=== PATIENT | male | born 1940 | race Caucasian/White ===

== ENCOUNTER 2016-08-02 00:46 | Observation (INO) | payer OTHER ==
[~2016-08-02] VITALS: Ht 180.3 cm; Wt 75.1 kg
[~2016-08-02 00:46] MED LIST: AMITRIPTYLINE H25 MG PO; CITALOPRAM HBR20 MG PO; HYZAAR 100-21 TABLET PO; LEVOTHROID88 MCG; LOPRESSOR50 MG PO; LOSARTAN-HCTZ1 EAC1; MEDROL DOSEPAK4 MG PO; METOPROLOL SUCC25 MG PO; MOTRIN600 MG PO; PROAIR HFA8.5 GM PO; RIZATRIPTAN10 M1 SL; SPIRIVA1 INHALATI PO; SYNTHROID88 MCG PO; TAMSULOSIN HCL0.4 MG PO
[2016-08-02 01:39] LABS: BASOPHIL COUNT 0.1 K/uL (0-0.1); EOSINOPHIL (%) 0.8 % (0-5); EOSINOPHIL COUNT 0.1 K/uL (0-0.3); HEMATOCRIT 40.3 % (38.0-50.0); IMMATURE GRANULOCYTE (%) 0.6 % (0.0-0.7); LYMPHOCYTE COUNT 1.5 K/uL (1.0-2.8); MCH 31.6 PG (29.0-34.0); MCHC 34.2 G/DL (30.0-36.0); MCV 92.2 FL (86-99); MEAN PLAT.VOLUME 9.8 uM^3 (9.0-12.4); MONOCYTE (%) 11.3 % (3-12); MONOCYTE COUNT 1.9 K/uL (0-0.8); NEUTROPHIL COUNT 12.7 K/uL (1.8-6.4); PLATELET COUNT 291 K/uL (156-360); RBC DIS.WIDTH-CV 13.6 % (11.8-14.6); RBC DIS.WIDTH-SD 44.7 % (39-53); RED BLOOD COUNT 4.37 M/uL (4.00-5.50); WHITE BLOOD COUNT 16.3 K/uL (4.1-10.2)
[2016-08-02 01:52] LABS: CHLORIDE 100 mEq/L (99-109); SODIUM 139 mEq/L (136-147)
[2016-08-02 01:53] LABS: GLUCOSE 113 mg/dL (70-99)
[2016-08-02 01:55] LABS: ANION GAP 17 MEQ/L (2-14)
[2016-08-02 01:57] LABS: GFR ESTIMATE (CALCULATED) 42 mL/min/; TROP-I INTERPRETATION NEGATIVE; TROPONIN-I < 0.01 ng/mL (0.0-0.30)
[2016-08-02 01:58] LABS: UREA NITROGEN (BUN) 17 mg/dL (9-23)
[2016-08-02 02:00] LABS: CREATINE KINASE 81 IU/L (1-294)
[2016-08-02 03:26] LABS: ADD MIUA? YES; BILIRUBIN NEGATIVE; BLOOD NEGATIVE; COLOR YELLOW ((YELLOW)); GLUCOSE (STRIP) NEGATIVE; KETONES NEGATIVE; LEUKOCYTES MODERATE; NITRITE NEGATIVE; PH, URINE 6.5 (5-8); PROTEIN (STRIP) 30; SPECIFIC GRAVITY 1.017 (1.000-1.030)
[2016-08-02] MEDS ORDERED: HYZAAR 100-21 TABLET PO (03:32)
[2016-08-02] MEDS ORDERED: METOPROLOL SUCC50 MG PO (03:32)
[2016-08-02] MEDS ORDERED: ELAVIL50 MG PO (03:34)
[2016-08-02] MEDS ORDERED: ASPIR 8181 M1 PO (03:35)
[2016-08-02 03:40] LABS: BACTERIA 3+; CASTS PRESENT /LPF; CRYSTALS NONE SEEN; EPITHELIAL CELLS RARE; HYALINE CASTS 0-5 /LPF; MUCUS NONE SEEN; RED BLOOD CELLS 0-5 /HPF (0-5); UCUL ADDED? YES; WHITE BLOOD CELLS 20-30 /HPF (0-5)
[2016-08-02 05:47] VITALS: BP 116/76
[2016-08-02 08:04] VITALS: BP 139/70
[2016-08-02] MEDS ORDERED: LOPRESSOR50 MG PO (09:36)
[2016-08-02] MEDS ORDERED: ADVAIR 250/501 DISK IH (09:37)
[2016-08-02 11:20] VITALS: BP 108/63
[2016-08-02] MEDS ORDERED: CEFTIN500 MG PO (15:12)
[2016-08-02] MEDS ORDERED: POLYMYXIN B-TMP10 ML BOTH EYES (15:13)
[2016-08-02 15:53] VITALS: BP 114/63
== END 2016-08-02 17:51 | disposition home or self-care (01) ==
LOC: EME → EDBD 00:46 → EME 00:46 → EDOF 04:06 → 5WEST 05:13
PROVIDERS: Emergency Medicine
DX: N39.0 Urinary tract infection, site not specified (principal); H10.89 Other conjunctivitis; F05 Delirium due to known physiological condition; J44.1 Chronic obstructive pulmonary disease with (acute) exacerbation; F17.210 Nicotine dependence, cigarettes, uncomplicated; I10 Essential (primary) hypertension; E03.9 Hypothyroidism, unspecified; R51 Headache; Z82.5 Family history of asthma and other chronic lower respiratory diseases; Z82.49 Family history of ischemic heart disease and other diseases of the circulatory system; Z79.82 Long term (current) use of aspirin
CPT/HCPCS: 70450; 71010; 71020; 80048; 81003; 82550; 83605; 84484; 85025; 87040; 87077; 87086; 87186; 93005; 94640; 94640 76; 94760; 99202; 99281; 99284; G0378; J0696; J1956; J3480; J7030; J7050

== ENCOUNTER 2016-08-16 07:03 | Inpatient (IN) | payer OTHER ==
[~2016-08-16] VITALS: Ht 177.8 cm; Wt 74.5 kg
[~2016-08-16 07:03] MED LIST changes: +ADVAIR 250/501 DISK IH; +ASPIR 8181 M1 PO; +CEFTIN500 MG PO; +ELAVIL50 MG PO; +METOPROLOL SUCC50 MG PO; +POLYMYXIN B-TMP10 ML BOTH EYES
[2016-08-16 08:28] LABS: EOSINOPHIL (%) 0.4 % (0-5); EOSINOPHIL COUNT 0.1 K/uL (0-0.3); HEMATOCRIT 36.8 % (38.0-50.0); IMMATURE GRANULOCYTE (%) 0.2 % (0.0-0.7); IMMATURE GRANULOCYTE COUNT 0.4 K/uL; MCH 31.6 PG (29.0-34.0); MCV 92.9 FL (86-99); MONOCYTE (%) 7.7 % (3-12); MONOCYTE COUNT 1.4 K/uL (0-0.8); NEUTROPHIL (%) 86.1 % (45-76); NEUTROPHIL COUNT 15.2 K/uL (1.8-6.4); RBC DIS.WIDTH-CV 14.2 % (11.8-14.6); RBC DIS.WIDTH-SD 47.1 % (39-53); RED BLOOD COUNT 3.96 M/uL (4.00-5.50); WHITE BLOOD COUNT 17.7 K/uL (4.1-10.2)
[2016-08-16 08:36] LABS: MEAN PLAT.VOLUME 9.4 uM^3 (9.0-12.4); PLATELET COUNT 443 K/uL (156-360)
[2016-08-16 08:38] LABS: INTER. NORMALIZED RATIO 1.2; PROTHROMBIN TIME 12.1 (9.2-11.2)
[2016-08-16 09:01] LABS: ANION GAP 11 MEQ/L (2-14); CHLORIDE 103 MEQ/L (99-109); POTASSIUM 3.5 MEQ/L (3.7-5.4); SAMPLE HEMOLYSIS CHECK 0; SAMPLE ICTERIC CHECK 0; SAMPLE LIPEMIA CHECK 0; SODIUM 139 MEQ/L (136-147); TOTAL BILIRUBIN 0.6 MG/DL (0.0-1.0)
[2016-08-16 09:07] LABS: ALKALINE PHOSPHATASE 50 IU/L (3-129); GFR ESTIMATE (CALCULATED) 57 mL/min/; GLUCOSE 115 mg/dL (70-99); UREA NITROGEN (BUN) 12 mg/dL (9-23)
[2016-08-16 09:20] LABS: TROP-I INTERPRETATION NEGATIVE; TROPONIN-I < 0.01 ng/mL (0.0-0.30)
[2016-08-16] MEDS ORDERED: ELAVIL25 MG PO (09:44)
[2016-08-16] MEDS ORDERED: LOSARTAN POTASS50 MG PO (09:45)
[2016-08-16 15:40] VITALS: BP 107/70
[2016-08-16 19:35] VITALS: BP 90/59
[2016-08-16 21:01] LABS: ADD MIUA? NO; BILIRUBIN SMALL; BLOOD NEGATIVE; COLOR DK YELLOW ((YELLOW)); GLUCOSE (STRIP) NEGATIVE; KETONES NEGATIVE; LEUKOCYTES NEGATIVE; NITRITE NEGATIVE; PROTEIN (STRIP) TRACE; UCUL ADDED? NO; UROBILINOGEN 0.2 MG/DL (0.2-1.0)
[2016-08-16 23:00] VITALS: BP 131/61
[2016-08-17 04:15] VITALS: BP 118/79
[2016-08-17 06:26] LABS: MCH 31.6 PG (29.0-34.0); MCHC 33.3 G/DL (30.0-36.0); MCV 94.8 FL (86-99); PLATELET COUNT 383 K/uL (156-360); RBC DIS.WIDTH-CV 14.8 % (11.8-14.6); RBC DIS.WIDTH-SD 50.5 % (39-53); RED BLOOD COUNT 3.48 M/uL (4.00-5.50)
[2016-08-17 06:27] LABS: WHITE BLOOD COUNT 9.1 K/uL (4.1-10.2)
[2016-08-17 06:49] LABS: ALKALINE PHOSPHATASE 44 IU/L (3-129); ANION GAP 7 MEQ/L (2-14); CHLORIDE 109 MEQ/L (99-109); GFR ESTIMATE (CALCULATED) 57 mL/min/; GLUCOSE 106 mg/dL (70-99); POTASSIUM 4.3 MEQ/L (3.7-5.4); SAMPLE HEMOLYSIS CHECK 0; SAMPLE ICTERIC CHECK 0; SAMPLE LIPEMIA CHECK 0; SODIUM 143 MEQ/L (136-147); TOTAL BILIRUBIN 0.4 MG/DL (0.0-1.0); UREA NITROGEN (BUN) 12 mg/dL (9-23)
[2016-08-17 06:51] LABS: TROP-I INTERPRETATION NEGATIVE; TROPONIN-I 0.04 ng/mL (0.0-0.30)
[2016-08-17 07:46] VITALS: BP 138/84
[2016-08-17 11:58] VITALS: BP 132/83
[2016-08-17 15:02] VITALS: BP 150/100
[2016-08-17 19:40] VITALS: BP 122/80
[2016-08-17 23:50] VITALS: BP 119/81
[2016-08-18 03:09] VITALS: BP 104/84
[2016-08-18 06:20] LABS: HEMATOCRIT 34.9 % (38.0-50.0); MCH 30.5 PG (29.0-34.0); MCHC 32.1 G/DL (30.0-36.0); MCV 95.1 FL (86-99); MEAN PLAT.VOLUME 9.9 uM^3 (9.0-12.4); PLATELET COUNT 423 K/uL (156-360); RBC DIS.WIDTH-CV 14.4 % (11.8-14.6); RED BLOOD COUNT 3.67 M/uL (4.00-5.50); WHITE BLOOD COUNT 9.3 K/uL (4.1-10.2)
[2016-08-18 06:44] LABS: ANION GAP 7 MEQ/L (2-14); CHLORIDE 107 MEQ/L (99-109); GFR ESTIMATE (CALCULATED) > 59 mL/min/; GLUCOSE 79 mg/dL (70-99); POTASSIUM 4.3 MEQ/L (3.7-5.4); SAMPLE HEMOLYSIS CHECK 0; SAMPLE ICTERIC CHECK 0; SAMPLE LIPEMIA CHECK 0; SODIUM 140 MEQ/L (136-147); UREA NITROGEN (BUN) 13 mg/dL (9-23)
[2016-08-18 07:45] VITALS: BP 153/92
[2016-08-18 09:31] VITALS: BP 153/92
[2016-08-18 12:07] VITALS: BP 146/95
[2016-08-18] MEDS ORDERED: ELIQUIS5 MG PO (12:59)
[2016-08-18] MEDS ORDERED: FINASTERIDE5 MG PO (13:01)
[2016-08-18 15:12] VITALS: BP 138/82
== END 2016-08-18 17:01 | disposition home health service (06) | DRG 309 ==
LOC: EME 07:03 → 4EAST 12:02 → EDOF 12:02 → 4EAST 15:33
PROVIDERS: Emergency Medicine; Internal Medicine
DX: I48.0 Paroxysmal atrial fibrillation (principal); N39.0 Urinary tract infection, site not specified; F32.9 Major depressive disorder, single episode, unspecified; N40.1 Benign prostatic hyperplasia with lower urinary tract symptoms; J44.9 Chronic obstructive pulmonary disease, unspecified; E78.5 Hyperlipidemia, unspecified; R73.9 Hyperglycemia, unspecified; R41.0 Disorientation, unspecified; I12.9 Hypertensive chronic kidney disease with stage 1 through stage 4 chronic kidney disease, or unspecified chronic kidney disease; R07.9 Chest pain, unspecified; N18.9 Chronic kidney disease, unspecified; F17.200 Nicotine dependence, unspecified, uncomplicated; E03.9 Hypothyroidism, unspecified; Z87.440 Personal history of urinary (tract) infections; Z74.01 Bed confinement status; Z79.82 Long term (current) use of aspirin; I71.2 Thoracic aortic aneurysm, without rupture
CPT/HCPCS: 70450; 71010; 71275; 76770; 80048; 80053; 81003; 83880; 84443; 84484; 85025; 85027; 85610; 85730; 87086; 93005; 93306; 94640; 94640 76; 94799; 99281; 99285; G0103; J1650

== ENCOUNTER 2016-10-01 04:17 | Emergency (ER) | payer OTHER ==
[~2016-10-01] VITALS: Ht 182.9 cm; Wt 76.0 kg
[~2016-10-01 04:17] MED LIST changes: +ELAVIL25 MG PO; +ELIQUIS5 MG PO; +FINASTERIDE5 MG PO; +LOSARTAN POTASS50 MG PO
[2016-10-01 04:40] LABS: HEMATOCRIT 41.4 % (38.0-50.0); MCH 31.9 PG (29.0-34.0); MCHC 33.3 G/DL (30.0-36.0); MCV 95.8 FL (86-99); MEAN PLAT.VOLUME 9.7 uM^3 (9.0-12.4); PLATELET COUNT 238 K/uL (156-360); RBC DIS.WIDTH-CV 14.3 % (11.8-14.6); RBC DIS.WIDTH-SD 50.4 % (39-53); RED BLOOD COUNT 4.32 M/uL (4.00-5.50); WHITE BLOOD COUNT 8.8 K/uL (4.1-10.2)
[2016-10-01 04:48] LABS: CHLORIDE 108 mEq/L (99-109); POTASSIUM 3.4 mEq/L (3.7-5.4); SODIUM 143 mEq/L (136-147)
[2016-10-01 04:50] LABS: GLUCOSE 112 mg/dL (70-99)
[2016-10-01 04:51] LABS: ANION GAP 13 MEQ/L (2-14)
[2016-10-01 04:54] LABS: GFR ESTIMATE (CALCULATED) 45 mL/min/
[2016-10-01 04:55] LABS: UREA NITROGEN (BUN) 21 mg/dL (9-23)
[2016-10-01 05:00] LABS: TROP-I INTERPRETATION NEGATIVE; TROPONIN-I < 0.01 ng/mL (0.0-0.30)
[2016-10-01 08:38] VITALS: BP 112/80
== END 2016-10-01 08:39 | disposition short-term general hospital (02) ==
LOC: EME → EDBD 04:17 → EME 08:39
PROVIDERS: Emergency Medicine
DX: I71.00 Dissection of unspecified site of aorta (principal); R07.9 Chest pain, unspecified; M54.9 Dorsalgia, unspecified; I10 Essential (primary) hypertension; E03.9 Hypothyroidism, unspecified; Z86.73 Personal history of transient ischemic attack (TIA), and cerebral infarction without residual deficits; F17.200 Nicotine dependence, unspecified, uncomplicated
CPT/HCPCS: 71020; 71275; 72131; 72132; 74177; 80048; 83880; 84484; 85027; 93005; 99281; 99285; J2270; J2405; J7030; J7050

== ENCOUNTER 2016-11-01 14:44 | Inpatient (IN) | payer OTHER ==
[~2016-11-01] VITALS: Ht 175.3 cm; Wt 75.8 kg
[2016-11-01 18:32] VITALS: BP 167/93
[2016-11-01 19:45] VITALS: BP 145/78
[2016-11-01] MEDS ORDERED: ACETAMINOPHEN325 M1 PO (19:56)
[2016-11-01] MEDS ORDERED: CEPHALEXIN500 MG PO (19:57)
[2016-11-01] MEDS ORDERED: ANTIFUNGAL15 G1 TP (19:58)
[2016-11-01] MEDS ORDERED: FLOVENT 11120 INHALA IH (19:59)
[2016-11-01] MEDS ORDERED: ATROVENT 00.5 MG/2.5 IH (20:00)
[2016-11-01] MEDS ORDERED: MULTIVITAMIN1 EAC2 PO (20:02)
[2016-11-01] MEDS ORDERED: ARTIFICIAL TEAR15 M1 BOTH EYES (20:04)
[2016-11-01] MEDS ORDERED: RISPERIDONE2 MG PO (20:04)
[2016-11-01] MEDS ORDERED: ASPIRIN325 MG PO (20:05)
[2016-11-01] MEDS ORDERED: SYNTHROID75 MCG PO (20:05)
[2016-11-02 00:05] VITALS: BP 101/61
[2016-11-02 04:50] VITALS: BP 123/58
[2016-11-02 07:32] VITALS: BP 98/69
[2016-11-02 09:18] LABS: HEMATOCRIT 28.3 % (38.0-50.0); MCH 31.1 PG (29.0-34.0); MCHC 31.1 G/DL (30.0-36.0); MEAN PLAT.VOLUME 9.4 uM^3 (9.0-12.4); PLATELET COUNT 318 K/uL (156-360); RBC DIS.WIDTH-CV 16.6 % (11.8-14.6); RBC DIS.WIDTH-SD 60.3 % (39-53); RED BLOOD COUNT 2.83 M/uL (4.00-5.50); WHITE BLOOD COUNT 12.3 K/uL (4.1-10.2)
[2016-11-02 09:42] LABS: ALKALINE PHOSPHATASE 73 IU/L (3-129); ANION GAP 9 MEQ/L (2-14); CHLORIDE 107 MEQ/L (99-109); GFR ESTIMATE (CALCULATED) 39 mL/min/; GLUCOSE 111 mg/dL (70-99); POTASSIUM 3.7 MEQ/L (3.7-5.4); SAMPLE HEMOLYSIS CHECK 0; SAMPLE ICTERIC CHECK 0; SAMPLE LIPEMIA CHECK 0; SODIUM 138 MEQ/L (136-147); TOTAL BILIRUBIN 0.4 MG/DL (0.0-1.0); UREA NITROGEN (BUN) 18 mg/dL (9-23)
[2016-11-02 15:33] VITALS: BP 114/73
[2016-11-03 05:47] VITALS: BP 154/90
[2016-11-03 05:57] LABS: ANION GAP 8 MEQ/L (2-14); CHLORIDE 107 MEQ/L (99-109); GFR ESTIMATE (CALCULATED) 45 mL/min/; GLUCOSE 93 mg/dL (70-99); POTASSIUM 3.6 MEQ/L (3.7-5.4); SAMPLE HEMOLYSIS CHECK 0; SAMPLE ICTERIC CHECK 0; SAMPLE LIPEMIA CHECK 0; SODIUM 138 MEQ/L (136-147); UREA NITROGEN (BUN) 19 mg/dL (9-23)
[2016-11-03 15:07] VITALS: BP 118/78
[2016-11-03 22:57] VITALS: BP 165/70
[2016-11-04 06:47] VITALS: BP 157/90
[2016-11-04 08:06] VITALS: BP 123/67
[2016-11-04 14:50] LABS: ADD MIUA? YES; BILIRUBIN NEGATIVE; BLOOD MODERATE; COLOR YELLOW ((YELLOW)); GLUCOSE (STRIP) NEGATIVE; KETONES NEGATIVE; LEUKOCYTES SMALL; NITRITE NEGATIVE; PROTEIN (STRIP) 30; SPECIFIC GRAVITY 1.016 (1.000-1.030); UROBILINOGEN 0.2 MG/DL (0.2-1.0)
[2016-11-04 15:02] VITALS: BP 138/85
[2016-11-04 17:47] LABS: AMORPHOUS URATES CRYSTALS 1+; BACTERIA 1+ /HPF; CASTS PRESENT /LPF; CRYSTALS PRESENT; EPITHELIAL CELLS RARE /HPF; HYALINE CASTS 0-5 /LPF; MUCUS 1+ /LPF; WHITE BLOOD CELLS 0-5 /HPF (0-5)
[2016-11-05 05:32] VITALS: BP 117/56
[2016-11-05 14:57] VITALS: BP 101/60
[2016-11-06 05:38] VITALS: BP 104/55
[2016-11-06 15:53] VITALS: BP 101/55
[2016-11-07 05:55] VITALS: BP 100/56
[2016-11-07 09:18] VITALS: BP 118/63
[2016-11-07 15:00] VITALS: BP 118/57
[2016-11-08 04:47] VITALS: BP 109/58
[2016-11-08 15:47] VITALS: BP 106/56
[2016-11-08 22:43] VITALS: BP 98/71
[2016-11-09 06:08] VITALS: BP 120/60
[2016-11-09 14:38] VITALS: BP 126/70
[2016-11-10 04:55] VITALS: BP 100/55
[2016-11-10 14:48] LABS: HEMATOCRIT 27.4 % (38.0-50.0); MCH 30.4 PG (29.0-34.0); MCHC 31.4 G/DL (30.0-36.0); MCV 96.8 FL (86-99); PLATELET COUNT 366 K/uL (156-360); RBC DIS.WIDTH-CV 15.8 % (11.8-14.6); RED BLOOD COUNT 2.83 M/uL (4.00-5.50); WHITE BLOOD COUNT 9.8 K/uL (4.1-10.2)
[2016-11-10 14:57] LABS: CHLORIDE 108 mEq/L (99-109); POTASSIUM 4.6 mEq/L (3.7-5.4); SODIUM 138 mEq/L (136-147)
[2016-11-10 14:59] LABS: GLUCOSE 99 mg/dL (70-99)
[2016-11-10 15:01] LABS: ANION GAP 8 MEQ/L (2-14); TOTAL BILIRUBIN 0.3 mg/dL (0.0-1.0)
[2016-11-10 15:03] LABS: ALKALINE PHOSPHATASE 71 IU/L (3-129); GFR ESTIMATE (CALCULATED) 57 mL/min/
[2016-11-10 15:04] VITALS: BP 133/74
[2016-11-10 15:04] LABS: UREA NITROGEN (BUN) 15 mg/dL (9-23)
[2016-11-11 05:05] VITALS: BP 118/60
[2016-11-11 15:17] VITALS: BP 113/67
[2016-11-12 05:29] VITALS: BP 115/52
[2016-11-12 16:09] VITALS: BP 143/86
[2016-11-13 04:10] VITALS: BP 135/85
[2016-11-14 05:03] VITALS: BP 139/81
[2016-11-14 14:39] VITALS: BP 120/73
[2016-11-15 04:59] LABS: HEMATOCRIT 26.2 % (38.0-50.0); MCH 30.4 PG (29.0-34.0); MCHC 31.3 G/DL (30.0-36.0); MEAN PLAT.VOLUME 9.7 uM^3 (9.0-12.4); PLATELET COUNT 321 K/uL (156-360); RBC DIS.WIDTH-CV 16.8 % (11.8-14.6)
[2016-11-15 05:08] LABS: CHLORIDE 107 mEq/L (99-109); POTASSIUM 4.2 mEq/L (3.7-5.4); SODIUM 137 mEq/L (136-147)
[2016-11-15 05:11] LABS: GLUCOSE 97 mg/dL (70-99)
[2016-11-15 05:12] LABS: ANION GAP 10 MEQ/L (2-14)
[2016-11-15 05:14] LABS: ALKALINE PHOSPHATASE 68 IU/L (3-129); GFR ESTIMATE (CALCULATED) 52 mL/min/
[2016-11-15 05:15] LABS: TOTAL BILIRUBIN 0.7 mg/dL (0.0-1.0); UREA NITROGEN (BUN) 14 mg/dL (9-23)
[2016-11-15 05:18] VITALS: BP 139/72
[2016-11-15 15:00] VITALS: BP 140/72
[2016-11-16 05:19] VITALS: BP 139/75
[2016-11-16] MEDS ORDERED: SYNTHROID75 MCG PO (13:19)
[2016-11-16] MEDS ORDERED: ATORVASTATIN CA40 MG PO (13:19)
[2016-11-16] MEDS ORDERED: TAMSULOSIN HCL0.4 MG PO (13:19)
[2016-11-16] MEDS ORDERED: ARTIFICIAL TEAR15 M1 BOTH EYES (13:19)
[2016-11-16] MEDS ORDERED: LOPRESSOR50 MG PO (13:19)
[2016-11-16] MEDS ORDERED: ADVAIR HFA120 INHAL1 IH (13:19)
[2016-11-16] MEDS ORDERED: FINASTERIDE5 MG PO (13:19)
[2016-11-16] MEDS ORDERED: SENNA PLUS TAB1 EACH PO (13:19)
[2016-11-16] MEDS ORDERED: ASPIRIN325 MG PO (13:19)
== END 2016-11-16 15:40 | disposition home health service (06) | DRG 556 ==
LOC: 3WEST 14:44
PROVIDERS: Internal Medicine; Physical Medicine & Rehabilitation Pain Medicine
PROC: F07M0ZZ Range of Motion and Joint Mobility Treatment of Musculoskeletal System - Whole Body (ICD-10-PCS; principal; 2016-11-01)
DX: R26.2 Difficulty in walking, not elsewhere classified (principal); Z48.89 Encounter for other specified surgical aftercare; N39.0 Urinary tract infection, site not specified; D62 Acute posthemorrhagic anemia; N17.9 Acute kidney failure, unspecified; F05 Delirium due to known physiological condition; L76.32 Postprocedural hematoma of skin and subcutaneous tissue following other procedure; L76.34 Postprocedural seroma of skin and subcutaneous tissue following other procedure; Y83.2 Surgical operation with anastomosis, bypass or graft as the cause of abnormal reaction of the patient, or of later complication, without mention of misadventure at the time of the procedure; Y92.239 Unspecified place in hospital as the place of occurrence of the external cause; I48.0 Paroxysmal atrial fibrillation; J44.9 Chronic obstructive pulmonary disease, unspecified; E87.6 Hypokalemia; I12.9 Hypertensive chronic kidney disease with stage 1 through stage 4 chronic kidney disease, or unspecified chronic kidney disease; N18.9 Chronic kidney disease, unspecified; E78.5 Hyperlipidemia, unspecified; R73.9 Hyperglycemia, unspecified; E03.9 Hypothyroidism, unspecified; R33.9 Retention of urine, unspecified; N40.1 Benign prostatic hyperplasia with lower urinary tract symptoms; G43.909 Migraine, unspecified, not intractable, without status migrainosus; F41.9 Anxiety disorder, unspecified; F17.210 Nicotine dependence, cigarettes, uncomplicated; Z95.828 Presence of other vascular implants and grafts
CPT/HCPCS: 70450; 71010; 71020; 72193; 76882; 80048; 80053; 81003; 84238 90; 84443; 85027; 85651; 87070; 87075; 87086; 87205; 93005; 94640; 94640 76; 94799; 97110 GO; 97530 GP; 99202; G0103; J1644

== ENCOUNTER 2016-11-28 02:47 | Emergency (ER) | payer OTHER ==
[~2016-11-28] VITALS: Ht 182.9 cm; Wt 71.8 kg
[~2016-11-28 02:47] MED LIST changes: +ACETAMINOPHEN325 M1 PO; +ADVAIR HFA120 INHAL1 IH; +ANTIFUNGAL15 G1 TP; +ARTIFICIAL TEAR15 M1 BOTH EYES; +ASPIRIN325 MG PO; +ATORVASTATIN CA40 MG PO; +ATROVENT 00.5 MG/2.5 IH; +CEPHALEXIN500 MG PO; +FLOVENT 11120 INHALA IH; +MULTIVITAMIN1 EAC2 PO; +RISPERIDONE2 MG PO; +SENNA PLUS TAB1 EACH PO; +SYNTHROID75 MCG PO
[2016-11-28 03:43] LABS: HEMATOCRIT 30.1 % (38.0-50.0); MCH 29.9 PG (29.0-34.0); MCHC 30.9 G/DL (30.0-36.0); MCV 96.8 FL (86-99); PLATELET COUNT 387 K/uL (156-360); RBC DIS.WIDTH-CV 15.8 % (11.8-14.6); RBC DIS.WIDTH-SD 56.7 % (39-53); RED BLOOD COUNT 3.11 M/uL (4.00-5.50); WHITE BLOOD COUNT 10.2 K/uL (4.1-10.2)
[2016-11-28 03:54] LABS: INTER. NORMALIZED RATIO 1.3; PROTHROMBIN TIME 12.9 (9.2-11.2); PTT 29.9 (25-32)
[2016-11-28 03:57] LABS: CHLORIDE 108 mEq/L (99-109); POTASSIUM 3.8 mEq/L (3.7-5.4); SODIUM 136 mEq/L (136-147)
[2016-11-28 03:59] LABS: GLUCOSE 95 mg/dL (70-99)
[2016-11-28 04:01] LABS: ANION GAP 7 MEQ/L (2-14); TOTAL BILIRUBIN 0.5 mg/dL (0.0-1.0)
[2016-11-28 04:03] LABS: ALKALINE PHOSPHATASE 84 IU/L (3-129); GFR ESTIMATE (CALCULATED) 57 mL/min/
[2016-11-28 04:04] LABS: UREA NITROGEN (BUN) 13 mg/dL (9-23)
[2016-11-28 04:05] LABS: DIRECT BILIRUBIN 0.3 mg/dL (0.0-0.3)
[2016-11-28 04:06] LABS: LIPASE 207 U/L (1.0-51.0)
[2016-11-28 04:12] LABS: TROP-I INTERPRETATION NEGATIVE; TROPONIN-I 0.01 ng/mL (0.0-0.30)
[2016-11-28 06:31] LABS: ADD MIUA? YES; BILIRUBIN NEGATIVE; BLOOD NEGATIVE; COLOR YELLOW ((YELLOW)); GLUCOSE (STRIP) NEGATIVE; KETONES NEGATIVE; LEUKOCYTES NEGATIVE; NITRITE POSITIVE; PROTEIN (STRIP) 30; SPECIFIC GRAVITY 1.033 (1.000-1.030); UROBILINOGEN 0.2 MG/DL (0.2-1.0)
[2016-11-28 06:33] LABS: BACTERIA 2+ /HPF; EPITHELIAL CELLS NONE SEEN /HPF; MUCUS 2+ /LPF; RED BLOOD CELLS 0-5 /HPF (0-5); UCUL ADDED? NO; WHITE BLOOD CELLS 0-5 /HPF (0-5)
[2016-11-28] MEDS ORDERED: METHENAMINE HIPP1 G1 PO (12:01)
[2016-11-28] MEDS ORDERED: LO-DOSE ASPIRIN81 M2 PO (12:02)
[2016-11-28] MEDS ORDERED: TRAZODONE HCL50 MG PO (12:03)
[2016-11-28] MEDS ORDERED: PROAIR HFA8.5 GM IH (12:04)
[2016-11-28 12:51] VITALS: BP 142/90
== END 2016-11-28 12:53 | disposition short-term general hospital (02) ==
LOC: EME 02:47
PROVIDERS: Emergency Medicine
DX: I71.01 Dissection of thoracic aorta (principal); N30.90 Cystitis, unspecified without hematuria; D64.9 Anemia, unspecified; R74.8 Abnormal levels of other serum enzymes; J44.9 Chronic obstructive pulmonary disease, unspecified; J45.909 Unspecified asthma, uncomplicated; I10 Essential (primary) hypertension; E03.9 Hypothyroidism, unspecified; F32.9 Major depressive disorder, single episode, unspecified; Z86.73 Personal history of transient ischemic attack (TIA), and cerebral infarction without residual deficits; F17.200 Nicotine dependence, unspecified, uncomplicated; Z98.890 Other specified postprocedural states
CPT/HCPCS: 71010; 71275; 74177; 80048; 80076; 81003; 83605; 83690; 84484; 85027; 85610; 85730; 93005; 94640; 99281; 99285; J7030

== ENCOUNTER 2016-12-21 18:46 | Inpatient (IN) | payer OTHER ==
[~2016-12-21] VITALS: Ht 177.8 cm; Wt 69.5 kg
[~2016-12-21 18:46] MED LIST changes: +LO-DOSE ASPIRIN81 M2 PO; +METHENAMINE HIPP1 G1 PO; +MULTIVITAMIN1 EAC2 GT; -MULTIVITAMIN1 EAC2 PO; +PROAIR HFA8.5 GM IH; +TRAZODONE HCL50 MG PO
[2016-12-21 19:43] LABS: MCH 30.1 PG (29.0-34.0); MCV 100.4 FL (86-99); MEAN PLAT.VOLUME 10.3 uM^3 (9.0-12.4); PLATELET COUNT 347 K/uL (156-360); RBC DIS.WIDTH-CV 17.9 % (11.8-14.6); RED BLOOD COUNT 2.79 M/uL (4.00-5.50)
[2016-12-21 19:56] LABS: CHLORIDE 107 mEq/L (99-109); POTASSIUM 3.9 mEq/L (3.7-5.4); SODIUM 143 mEq/L (136-147)
[2016-12-21 19:58] LABS: GLUCOSE 109 mg/dL (70-99)
[2016-12-21 19:59] LABS: ANION GAP 7 MEQ/L (2-14)
[2016-12-21 20:02] LABS: GFR ESTIMATE (CALCULATED) > 59 mL/min/
[2016-12-21 20:03] LABS: UREA NITROGEN (BUN) 34 mg/dL (9-23)
[2016-12-21 20:11] LABS: TROP-I INTERPRETATION NEGATIVE; TROPONIN-I < 0.01 ng/mL (0.0-0.30)
[2016-12-21 22:40] LABS: BASE EXCESS 5.8 mEq/L (-3 to +3); BICARBONATE 30.6 mEq/L (22-26); CARBOXY HGB 2.2 % (0-5); COMMENTS - BLOOD GASES A+C+; DEVICE NC; METHEMOGLOBIN 0.5 % (0-1.5); PCO2 45 mm Hg (35-45); PO2 60 mm Hg (80-100); SITE RR; pH 7.44 (7.35-7.45)
[2016-12-21 22:48] LABS: MAGNESIUM 2.4 mg/dL (1.3-2.7)
[2016-12-21 22:51] LABS: TOTAL BILIRUBIN 0.4 mg/dL (0.0-1.0)
[2016-12-21 22:52] LABS: ALKALINE PHOSPHATASE 112 IU/L (3-129)
[2016-12-21 22:55] LABS: DIRECT BILIRUBIN 0.2 mg/dL (0.0-0.3)
[2016-12-21 23:51] VITALS: BP 136/90
[2016-12-22] VITALS (12 sets, daily range): BP systolic 94–129; BP diastolic 56–76
[2016-12-22] MEDS ORDERED: JEVITY1000 M1 GT (00:31)
[2016-12-22] MEDS ORDERED: DOCU LIQUI50 MG/5 ML GT (00:32)
[2016-12-22] MEDS ORDERED: FLOVENT 22120 INHALA IH (00:33)
[2016-12-22] MEDS ORDERED: METOPROLOL TART75 MG GT (00:35)
[2016-12-22] MEDS ORDERED: MIRALAX255 GM GT (00:36)
[2016-12-22] MEDS ORDERED: ASPIRIN325 MG GT (00:38)
[2016-12-22] MEDS ORDERED: POTASSIUM20 MEQ/11 GT (00:38)
[2016-12-22] MEDS ORDERED: LEVO-T75 MCG GT (00:39)
[2016-12-22] MEDS ORDERED: FUROSEMIDE20 MG GT (00:40)
[2016-12-22] MEDS ORDERED: RISPERDAL1 MG/ML GT (00:44)
[2016-12-22] MEDS ORDERED: SENNA176 MG/5 M GT (00:45)
[2016-12-22] MEDS ORDERED: TERAZOSIN HCL1 MG GT (00:46)
[2016-12-22] MEDS ORDERED: MILK OF MAGN GT (00:48)
[2016-12-22] MEDS ORDERED: GENTLE LAXATIVE10 MG PR (00:48)
[2016-12-22] MEDS ORDERED: FLEET ENEMA EX230 ML PR (00:49)
[2016-12-22] MEDS ORDERED: CHILDREN'S160 MG/22 GT (00:50)
[2016-12-22 05:31] LABS: EOSINOPHIL (%) 6.6 % (0-5); EOSINOPHIL COUNT 0.6 K/uL (0-0.3); HEMATOCRIT 22.8 % (38.0-50.0); IMMATURE GRANULOCYTE (%) 0.5 % (0.0-0.7); INSTRUMENT ABS NEUTROPHIL CT 6.3 K/uL; MCH 30.7 PG (29.0-34.0); MCHC 30.7 G/DL (30.0-36.0); MEAN PLAT.VOLUME 10.6 uM^3 (9.0-12.4); MONOCYTE (%) 6.1 % (3-12); MONOCYTE COUNT 0.5 K/uL (0-0.8); NEUTROPHIL (%) 74.6 % (45-76); NEUTROPHIL COUNT 6.3 K/uL (1.8-6.4); PLATELET COUNT 288 K/uL (156-360); RBC DIS.WIDTH-CV 17.5 % (11.8-14.6); RED BLOOD COUNT 2.28 M/uL (4.00-5.50); WHITE BLOOD COUNT 8.5 K/uL (4.1-10.2)
[2016-12-22 05:46] LABS: ALKALINE PHOSPHATASE 79 IU/L (3-129); ANION GAP 8 MEQ/L (2-14); CHLORIDE 107 MEQ/L (99-109); GFR ESTIMATE (CALCULATED) > 59 mL/min/; GLUCOSE 85 mg/dL (70-99); POTASSIUM 3.8 MEQ/L (3.7-5.4); SAMPLE HEMOLYSIS CHECK 0; SAMPLE ICTERIC CHECK 0; SAMPLE LIPEMIA CHECK 0; SODIUM 142 MEQ/L (136-147); TOTAL BILIRUBIN 0.4 MG/DL (0.0-1.0); UREA NITROGEN (BUN) 30 mg/dL (9-23)
[2016-12-22 08:19] LABS: POINT-OF-CARE METER ID UU14174216
[2016-12-22 08:42] LABS: BASE EXCESS 6.2 mEq/L (-3 to +3); BICARBONATE 30.6 mEq/L (22-26); CARBOXY HGB 2.2 % (0-5); METHEMOGLOBIN 1.1 % (0-1.5); PCO2 43 mm Hg (35-45); PO2 53 mm Hg (80-100); pH 7.46 (7.35-7.45)
[2016-12-22 08:43] LABS: COMMENTS - BLOOD GASES A+C+; DEVICE NC; O2 FLOW 3 L/MIN; SITE LR; TOTAL RESP RATE 16 resp/min
[2016-12-22 15:15] LABS: ADD MIUA? NO; BILIRUBIN NEGATIVE; BLOOD NEGATIVE; COLOR YELLOW ((YELLOW)); GLUCOSE (STRIP) NEGATIVE; KETONES NEGATIVE; LEUKOCYTES NEGATIVE; NITRITE NEGATIVE; PROTEIN (STRIP) NEGATIVE; SPECIFIC GRAVITY 1.013 (1.000-1.030); UROBILINOGEN 0.2 MG/DL (0.2-1.0)
[2016-12-23 03:30] VITALS: BP 104/58
[2016-12-23 06:15] LABS: ANION GAP 8 MEQ/L (2-14); CHLORIDE 104 MEQ/L (99-109); GFR ESTIMATE (CALCULATED) > 59 mL/min/; GLUCOSE 72 mg/dL (70-99); HEMATOCRIT 29.7 % (38.0-50.0); MCH 30.9 PG (29.0-34.0); MCHC 32.3 G/DL (30.0-36.0); PLATELET COUNT 286 K/uL (156-360); POTASSIUM 4.1 MEQ/L (3.7-5.4); RBC DIS.WIDTH-CV 18.6 % (11.8-14.6); RBC DIS.WIDTH-SD 64.2 % (39-53); SAMPLE HEMOLYSIS CHECK 0; SAMPLE ICTERIC CHECK 0; SAMPLE LIPEMIA CHECK 0; SODIUM 138 MEQ/L (136-147); UREA NITROGEN (BUN) 31 mg/dL (9-23); WHITE BLOOD COUNT 7.8 K/uL (4.1-10.2)
[2016-12-23 06:17] LABS: MCV 95.5 FL (86-99); RED BLOOD COUNT 3.11 M/uL (4.00-5.50)
[2016-12-23 07:37] VITALS: BP 106/74
[2016-12-23 08:37] LABS: INTERNAL CONTROL VALID? YES
[2016-12-23 11:37] VITALS: BP 115/67
[2016-12-23 14:05] LABS: POC NON-PRINT COM 1 ND
[2016-12-23 19:15] VITALS: BP 121/72
[2016-12-23 23:30] VITALS: BP 91/51
[2016-12-24 03:45] VITALS: BP 109/57
[2016-12-24 04:44] LABS: HEMATOCRIT 29.5 % (38.0-50.0); MCH 29.8 PG (29.0-34.0); MCHC 31.5 G/DL (30.0-36.0); MCV 94.6 FL (86-99); MEAN PLAT.VOLUME 10.3 uM^3 (9.0-12.4); PLATELET COUNT 276 K/uL (156-360); RBC DIS.WIDTH-SD 61.1 % (39-53); RED BLOOD COUNT 3.12 M/uL (4.00-5.50); WHITE BLOOD COUNT 5.8 K/uL (4.1-10.2)
[2016-12-24 04:55] LABS: CHLORIDE 106 mEq/L (99-109); POTASSIUM 3.7 mEq/L (3.7-5.4); SODIUM 142 mEq/L (136-147)
[2016-12-24 04:58] LABS: ANION GAP 7 MEQ/L (2-14)
[2016-12-24 05:01] LABS: GFR ESTIMATE (CALCULATED) > 59 mL/min/; UREA NITROGEN (BUN) 27 mg/dL (9-23)
[2016-12-24 05:04] LABS: GLUCOSE 135 mg/dL (70-99)
[2016-12-24 07:00] VITALS: BP 110/66
[2016-12-24 11:21] VITALS: BP 118/76
[2016-12-24 15:51] VITALS: BP 151/74
[2016-12-24 19:00] VITALS: BP 126/61
[2016-12-24 23:30] VITALS: BP 122/66
[2016-12-25 03:30] VITALS: BP 118/66
[2016-12-25 06:03] LABS: HEMATOCRIT 31.9 % (38.0-50.0); MCH 29.9 PG (29.0-34.0); MCV 96.4 FL (86-99); MEAN PLAT.VOLUME 9.9 uM^3 (9.0-12.4); PLATELET COUNT 265 K/uL (156-360); RBC DIS.WIDTH-CV 17.5 % (11.8-14.6); RBC DIS.WIDTH-SD 60.4 % (39-53); RED BLOOD COUNT 3.31 M/uL (4.00-5.50); WHITE BLOOD COUNT 6.7 K/uL (4.1-10.2)
[2016-12-25 06:26] LABS: ANION GAP 7 MEQ/L (2-14); CHLORIDE 105 MEQ/L (99-109); GFR ESTIMATE (CALCULATED) > 59 mL/min/; GLUCOSE 114 mg/dL (70-99); POTASSIUM 3.7 MEQ/L (3.7-5.4); SAMPLE HEMOLYSIS CHECK 0; SAMPLE ICTERIC CHECK 0; SAMPLE LIPEMIA CHECK 0; SODIUM 142 MEQ/L (136-147); UREA NITROGEN (BUN) 22 mg/dL (9-23)
[2016-12-25 07:22] VITALS: BP 139/80
[2016-12-25 12:45] VITALS: BP 116/63
[2016-12-25 16:08] VITALS: BP 107/61
[2016-12-25 20:00] VITALS: BP 130/61
[2016-12-26 00:23] VITALS: BP 139/79
[2016-12-26 04:42] VITALS: BP 139/65
[2016-12-26 07:45] VITALS: BP 134/79
[2016-12-26 11:10] VITALS: BP 132/74
[2016-12-26 16:36] VITALS: BP 147/82
[2016-12-26 23:15] VITALS: BP 132/68
[2016-12-27 04:42] VITALS: BP 142/73
[2016-12-27 07:05] LABS: HEMATOCRIT 28.7 % (38.0-50.0); MCH 30.2 PG (29.0-34.0); MCHC 31.4 G/DL (30.0-36.0); MCV 96.3 FL (86-99); MEAN PLAT.VOLUME 10.3 uM^3 (9.0-12.4); PLATELET COUNT 246 K/uL (156-360); RBC DIS.WIDTH-CV 16.9 % (11.8-14.6); RBC DIS.WIDTH-SD 58.4 % (39-53); RED BLOOD COUNT 2.98 M/uL (4.00-5.50); WHITE BLOOD COUNT 7.6 K/uL (4.1-10.2)
[2016-12-27 08:00] VITALS: BP 149/65
[2016-12-27 12:00] VITALS: BP 140/80
[2016-12-27 16:38] VITALS: BP 107/56
[2016-12-27 19:30] VITALS: BP 120/67
[2016-12-27 23:00] VITALS: BP 153/70
[2016-12-28 03:30] VITALS: BP 128/79
[2016-12-28 06:01] LABS: EOSINOPHIL (%) 0.1 % (0-5); HEMATOCRIT 30.6 % (38.0-50.0); IMMATURE GRANULOCYTE (%) 0.6 % (0.0-0.7); IMMATURE GRANULOCYTE COUNT 0.1 K/uL; INSTRUMENT ABS NEUTROPHIL CT 6.7 K/uL; LYMPHOCYTE COUNT 0.9 K/uL (1.0-2.8); MCH 30.1 PG (29.0-34.0); MCV 96.8 FL (86-99); MEAN PLAT.VOLUME 10.3 uM^3 (9.0-12.4); MONOCYTE (%) 11.8 % (3-12); NEUTROPHIL (%) 77.1 % (45-76); NEUTROPHIL COUNT 6.7 K/uL (1.8-6.4); PLATELET COUNT 271 K/uL (156-360); RBC DIS.WIDTH-SD 58.9 % (39-53); RED BLOOD COUNT 3.16 M/uL (4.00-5.50); WHITE BLOOD COUNT 8.7 K/uL (4.1-10.2)
[2016-12-28 06:25] LABS: ALKALINE PHOSPHATASE 81 IU/L (3-129); ANION GAP 8 MEQ/L (2-14); CHLORIDE 104 MEQ/L (99-109); GFR ESTIMATE (CALCULATED) > 59 mL/min/; GLUCOSE 116 mg/dL (70-99); POTASSIUM 3.9 MEQ/L (3.7-5.4); SAMPLE HEMOLYSIS CHECK 0; SAMPLE ICTERIC CHECK 0; SAMPLE LIPEMIA CHECK 0; SODIUM 143 MEQ/L (136-147); UREA NITROGEN (BUN) 21 mg/dL (9-23)
[2016-12-28 06:32] LABS: TOTAL BILIRUBIN 0.3 MG/DL (0.0-1.0)
[2016-12-28 09:24] VITALS: BP 127/63
[2016-12-28 11:09] VITALS: BP 138/74
[2016-12-28 19:57] VITALS: BP 119/65
[2016-12-29 00:36] VITALS: BP 121/75
[2016-12-29 03:53] VITALS: BP 139/79
[2016-12-29 07:52] VITALS: BP 119/59
[2016-12-29 10:16] LABS: EOSINOPHIL (%) 0.6 % (0-5); EOSINOPHIL COUNT 0.1 K/uL (0-0.3); HEMATOCRIT 31.6 % (38.0-50.0); IMMATURE GRANULOCYTE (%) 0.5 % (0.0-0.7); INSTRUMENT ABS NEUTROPHIL CT 6.8 K/uL; LYMPHOCYTE COUNT 0.8 K/uL (1.0-2.8); MCH 29.5 PG (29.0-34.0); MCHC 30.7 G/DL (30.0-36.0); MEAN PLAT.VOLUME 9.7 uM^3 (9.0-12.4); MONOCYTE COUNT 0.6 K/uL (0-0.8); NEUTROPHIL (%) 81.8 % (45-76); NEUTROPHIL COUNT 6.8 K/uL (1.8-6.4); PLATELET COUNT 275 K/uL (156-360); RBC DIS.WIDTH-CV 16.6 % (11.8-14.6); RBC DIS.WIDTH-SD 57.8 % (39-53); RED BLOOD COUNT 3.29 M/uL (4.00-5.50); WHITE BLOOD COUNT 8.3 K/uL (4.1-10.2)
[2016-12-29 10:27] LABS: CHLORIDE 104 mEq/L (99-109); POTASSIUM 3.9 mEq/L (3.7-5.4); SODIUM 140 mEq/L (136-147)
[2016-12-29 10:30] LABS: GLUCOSE 112 mg/dL (70-99)
[2016-12-29 10:31] LABS: ANION GAP 8 MEQ/L (2-14)
[2016-12-29 10:32] LABS: TOTAL BILIRUBIN 0.3 mg/dL (0.0-1.0)
[2016-12-29 10:33] LABS: ALKALINE PHOSPHATASE 83 IU/L (3-129); GFR ESTIMATE (CALCULATED) > 59 mL/min/
[2016-12-29 10:34] LABS: UREA NITROGEN (BUN) 23 mg/dL (9-23)
[2016-12-29] MEDS ORDERED: AMOX TR-K600 MG/5 M GT (11:47)
[2016-12-29] MEDS ORDERED: SPIRIVA RESPIMAT4 GM IH (11:47)
[2016-12-29] MEDS ORDERED: PREDNISONE1 MG/ML GT (11:49)
[2016-12-29] MEDS ORDERED: FINASTERIDE5 MG GT (11:50)
[2016-12-29 12:38] VITALS: BP 119/70
== END 2016-12-29 15:53 | DRG 871 ==
LOC: EME → EDBD 18:46 → EME 18:46 → 4EAST 21:31 → EDOF 21:31 → 3EAST 21:31 → 4EAST 23:26
PROVIDERS: Emergency Medicine; Hospitalist; Internal Medicine; Physician Assistant Medical
PROC: 0DJ08ZZ Inspection of Upper Intestinal Tract, Via Natural or Artificial Opening Endoscopic (ICD-10-PCS; principal; 2016-12-23)
DX: A41.9 Sepsis, unspecified organism (principal); J69.0 Pneumonitis due to inhalation of food and vomit; J96.21 Acute and chronic respiratory failure with hypoxia; R13.10 Dysphagia, unspecified; I48.0 Paroxysmal atrial fibrillation; F41.9 Anxiety disorder, unspecified; R33.9 Retention of urine, unspecified; J90 Pleural effusion, not elsewhere classified; G43.909 Migraine, unspecified, not intractable, without status migrainosus; N31.2 Flaccid neuropathic bladder, not elsewhere classified; D62 Acute posthemorrhagic anemia; E03.9 Hypothyroidism, unspecified; E78.5 Hyperlipidemia, unspecified; Z87.891 Personal history of nicotine dependence; N40.1 Benign prostatic hyperplasia with lower urinary tract symptoms; R47.02 Dysphasia; I12.9 Hypertensive chronic kidney disease with stage 1 through stage 4 chronic kidney disease, or unspecified chronic kidney disease; N18.3 Chronic kidney disease, stage 3 (moderate); T81.89XA Other complications of procedures, not elsewhere classified, initial encounter; Y83.8 Other surgical procedures as the cause of abnormal reaction of the patient, or of later complication, without mention of misadventure at the time of the procedure; Z93.1 Gastrostomy status; J44.9 Chronic obstructive pulmonary disease, unspecified; F05 Delirium due to known physiological condition
CPT/HCPCS: 36600; 70450; 71010; 71020; 74230; 80048; 80048 91; 80053; 80076; 81003; 82272; 82607; 82746; 82803; 82948; 83605; 83735; 84484; 85025; 85027; 86900; 86901; 86920; 87040; 87070; 87086; 87205; 87449; 92526 GN; 92610 GN; 92611 GN; 93005; 94010; 94640; 94640 76; 94667; 94668; 94760; 94799; 97530 GP; 99202; 99281; 99285; J0456; J1644; J1940; J2543; J3370; J7050; J7512; P9016

== ENCOUNTER 2017-01-02 18:23 | Inpatient (IN) | payer OTHER ==
[~2017-01-02] VITALS: Ht 177.8 cm; Wt 95.0 kg
[~2017-01-02 18:23] MED LIST changes: +AMOX TR-K600 MG/5 M GT; +ASPIRIN325 MG GT; +CHILDREN'S160 MG/22 GT; +DOCU LIQUI50 MG/5 ML GT; +FINASTERIDE5 MG GT; +FLEET ENEMA EX230 ML PR; +FLOVENT 22120 INHALA IH; +FUROSEMIDE20 MG GT; +GENTLE LAXATIVE10 MG PR; +JEVITY1000 M1 GT; +LEVO-T75 MCG GT; +METOPROLOL TART75 MG GT; +MILK OF MAGN GT; +MIRALAX255 GM GT; +POTASSIUM20 MEQ/11 GT; +PREDNISONE1 MG/ML GT; +RISPERDAL1 MG/ML GT; +SENNA176 MG/5 M GT; +SPIRIVA RESPIMAT4 GM IH; +TERAZOSIN HCL1 MG GT
[2017-01-02 19:05] LABS: HEMATOCRIT 34.4 % (38.0-50.0); MCH 29.6 PG (29.0-34.0); MCHC 31.4 G/DL (30.0-36.0); MCV 94.2 FL (86-99); MEAN PLAT.VOLUME 9.5 uM^3 (9.0-12.4); RBC DIS.WIDTH-CV 16.1 % (11.8-14.6); RBC DIS.WIDTH-SD 55.4 % (39-53); RED BLOOD COUNT 3.65 M/uL (4.00-5.50)
[2017-01-02 19:06] LABS: PLATELET COUNT 411 K/uL (156-360)
[2017-01-02 19:14] LABS: CHLORIDE 102 mEq/L (99-109); POTASSIUM 4.2 mEq/L (3.7-5.4); SODIUM 137 mEq/L (136-147)
[2017-01-02 19:15] LABS: GLUCOSE 122 mg/dL (70-99)
[2017-01-02 19:17] LABS: ANION GAP 10 MEQ/L (2-14)
[2017-01-02 19:19] LABS: GFR ESTIMATE (CALCULATED) > 59 mL/min/
[2017-01-02 19:20] LABS: UREA NITROGEN (BUN) 23 mg/dL (9-23)
[2017-01-02 19:24] LABS: TROP-I INTERPRETATION NEGATIVE; TROPONIN-I 0.05 ng/mL (0.0-0.30)
[2017-01-02 19:58] LABS: INTER. NORMALIZED RATIO 1.1; PROTHROMBIN TIME 11.4 (9.2-11.2); PTT 25.4 (25-32)
[2017-01-02 20:01] LABS: BASE EXCESS 4.7 mEq/L (-3 to +3); BICARBONATE 27.9 mEq/L (22-26); CARBOXY HGB 2.1 % (0-5); COMMENTS - BLOOD GASES A+C+; DEVICE NC; MECHANICAL RATE 18 resp/min; METHEMOGLOBIN 0.9 % (0-1.5); O2 FLOW 4 L/MIN; PCO2 35 mm Hg (35-45); PO2 61 mm Hg (80-100); SITE RR; pH 7.51 (7.35-7.45)
[2017-01-02] MEDS ORDERED: SPIRIVA RESPIMAT4 GM IH (21:44)
[2017-01-02] MEDS ORDERED: FINASTERIDE5 MG GT (21:45)
[2017-01-02] MEDS ORDERED: MAXALT MLT10 MG PO (21:47)
[2017-01-02] MEDS ORDERED: DUONEB 2.5-0.5 M3 ML AEROSOL (21:47)
[2017-01-02] MEDS ORDERED: TAMSULOSIN HCL0.4 MG GT (21:48)
[2017-01-02] MEDS ORDERED: ADVAIR 250/501 DISK IH (21:48)
[2017-01-02] MEDS ORDERED: TRAZODONE HCL50 MG GT (21:48)
[2017-01-03] VITALS (7 sets, daily range): BP systolic 112–158; BP diastolic 58–81
[2017-01-04 04:07] VITALS: BP 133/64
[2017-01-04 07:03] LABS: EOSINOPHIL (%) 0 % (0-5); HEMATOCRIT 32.5 % (38.0-50.0); IMMATURE GRANULOCYTE (%) 0.8 % (0.0-0.7); IMMATURE GRANULOCYTE COUNT 0.1 K/uL; INSTRUMENT ABS NEUTROPHIL CT 11.5 K/uL; LYMPHOCYTE COUNT 0.4 K/uL (1.0-2.8); MCH 29.1 PG (29.0-34.0); MCHC 30.8 G/DL (30.0-36.0); MCV 94.5 FL (86-99); MEAN PLAT.VOLUME 9.6 uM^3 (9.0-12.4); MONOCYTE (%) 3.9 % (3-12); MONOCYTE COUNT 0.5 K/uL (0-0.8); NEUTROPHIL (%) 91.8 % (45-76); NEUTROPHIL COUNT 11.5 K/uL (1.8-6.4); PLATELET COUNT 443 K/uL (156-360); RBC DIS.WIDTH-CV 15.8 % (11.8-14.6); RBC DIS.WIDTH-SD 54.5 % (39-53); RED BLOOD COUNT 3.44 M/uL (4.00-5.50); WHITE BLOOD COUNT 12.5 K/uL (4.1-10.2)
[2017-01-04 07:29] LABS: ANION GAP 7 MEQ/L (2-14); CHLORIDE 98 MEQ/L (99-109); GFR ESTIMATE (CALCULATED) > 59 mL/min/; GLUCOSE 130 mg/dL (70-99); POTASSIUM 4.3 MEQ/L (3.7-5.4); SAMPLE HEMOLYSIS CHECK 0; SAMPLE ICTERIC CHECK 0; SAMPLE LIPEMIA CHECK 0; SODIUM 133 MEQ/L (136-147); UREA NITROGEN (BUN) 28 mg/dL (9-23)
[2017-01-04 07:47] VITALS: BP 166/82
[2017-01-04 11:49] VITALS: BP 142/81
[2017-01-04 17:45] LABS: C DIFF TOXIN NEGATIVE (NEGATIVE)
[2017-01-04 17:46] LABS: PROBE CHECK PASS; SPECIMEN PROCESSING CONTROL PASS
[2017-01-04 19:49] VITALS: BP 124/58
[2017-01-04 23:49] VITALS: BP 130/60
[2017-01-05 08:51] VITALS: BP 148/84
[2017-01-05 12:07] VITALS: BP 135/74
[2017-01-05 15:56] VITALS: BP 134/78
[2017-01-05 19:59] VITALS: BP 126/68
[2017-01-05 23:08] VITALS: BP 119/61
[2017-01-06 05:26] VITALS: BP 167/96
[2017-01-06 06:48] LABS: EOSINOPHIL (%) 0 % (0-5); HEMATOCRIT 31.6 % (38.0-50.0); IMMATURE GRANULOCYTE (%) 0.8 % (0.0-0.7); IMMATURE GRANULOCYTE COUNT 0.1 K/uL; INSTRUMENT ABS NEUTROPHIL CT 9.9 K/uL; LYMPHOCYTE COUNT 0.9 K/uL (1.0-2.8); MCH 30.3 PG (29.0-34.0); MCHC 31.6 G/DL (30.0-36.0); MCV 95.8 FL (86-99); MEAN PLAT.VOLUME 9.3 uM^3 (9.0-12.4); MONOCYTE (%) 8.6 % (3-12); NEUTROPHIL (%) 83.3 % (45-76); NEUTROPHIL COUNT 9.9 K/uL (1.8-6.4); PLATELET COUNT 434 K/uL (156-360); RBC DIS.WIDTH-CV 15.9 % (11.8-14.6); RBC DIS.WIDTH-SD 55.8 % (39-53); WHITE BLOOD COUNT 11.9 K/uL (4.1-10.2)
[2017-01-06 07:13] LABS: ALKALINE PHOSPHATASE 90 IU/L (3-129); ANION GAP 5 MEQ/L (2-14); CHLORIDE 104 MEQ/L (99-109); GFR ESTIMATE (CALCULATED) > 59 mL/min/; GLUCOSE 101 mg/dL (70-99); POTASSIUM 3.7 MEQ/L (3.7-5.4); SAMPLE HEMOLYSIS CHECK 0; SAMPLE ICTERIC CHECK 0; SAMPLE LIPEMIA CHECK 0; TOTAL BILIRUBIN 0.3 MG/DL (0.0-1.0); UREA NITROGEN (BUN) 25 mg/dL (9-23)
[2017-01-06 07:15] LABS: SODIUM 140 MEQ/L (136-147)
[2017-01-06 08:32] VITALS: BP 157/83
[2017-01-06 11:52] VITALS: BP 154/78
[2017-01-06 16:16] VITALS: BP 149/85
[2017-01-06 19:52] VITALS: BP 129/73
[2017-01-06 23:57] VITALS: BP 154/84
[2017-01-07 04:00] VITALS: BP 138/86
[2017-01-07 09:14] VITALS: BP 139/83
[2017-01-07 12:12] VITALS: BP 152/86
[2017-01-07 12:22] LABS: HEMATOCRIT 31.4 % (38.0-50.0); MCH 30.2 PG (29.0-34.0); MCHC 31.5 G/DL (30.0-36.0); MCV 95.7 FL (86-99); MEAN PLAT.VOLUME 9.4 uM^3 (9.0-12.4); PLATELET COUNT 417 K/uL (156-360); RBC DIS.WIDTH-CV 15.9 % (11.8-14.6); RBC DIS.WIDTH-SD 55.8 % (39-53); RED BLOOD COUNT 3.28 M/uL (4.00-5.50); WHITE BLOOD COUNT 12.2 K/uL (4.1-10.2)
[2017-01-07 13:01] LABS: ANION GAP 7 MEQ/L (2-14); CHLORIDE 105 MEQ/L (99-109); GFR ESTIMATE (CALCULATED) > 59 mL/min/; GLUCOSE 96 mg/dL (70-99); SAMPLE HEMOLYSIS CHECK 0; SAMPLE ICTERIC CHECK 0; SAMPLE LIPEMIA CHECK 0; SODIUM 142 MEQ/L (136-147); UREA NITROGEN (BUN) 28 mg/dL (9-23)
[2017-01-07 16:31] VITALS: BP 130/78
[2017-01-07 20:35] VITALS: BP 120/70
[2017-01-07 23:14] VITALS: BP 161/85
[2017-01-08 08:29] VITALS: BP 147/92
[2017-01-08 11:43] VITALS: BP 160/90
[2017-01-08] MEDS ORDERED: PREDNISONE10 MG PO (14:54)
[2017-01-08] MEDS ORDERED: FLORASTOR250 MG GT (14:54)
[2017-01-08] MEDS ORDERED: AMOX TR-K400 MG/5 M GT (14:54)
[2017-01-09] MEDS ORDERED: KEFLEX500 MG PO (02:10)
== END 2017-01-08 16:46 | disposition home health service (06) | DRG 190 ==
LOC: EME 18:23 → EDOF 21:49 → 3EAST 21:49
PROVIDERS: Emergency Medicine; Hospitalist; Internal Medicine
DX: J44.0 Chronic obstructive pulmonary disease with (acute) lower respiratory infection (principal); J96.21 Acute and chronic respiratory failure with hypoxia; J20.9 Acute bronchitis, unspecified; J90 Pleural effusion, not elsewhere classified; J69.0 Pneumonitis due to inhalation of food and vomit; N18.3 Chronic kidney disease, stage 3 (moderate); E03.9 Hypothyroidism, unspecified; E11.22 Type 2 diabetes mellitus with diabetic chronic kidney disease; E78.2 Mixed hyperlipidemia; E87.3 Alkalosis; F41.9 Anxiety disorder, unspecified; F33.9 Major depressive disorder, recurrent, unspecified; G43.909 Migraine, unspecified, not intractable, without status migrainosus; I12.9 Hypertensive chronic kidney disease with stage 1 through stage 4 chronic kidney disease, or unspecified chronic kidney disease; I25.10 Atherosclerotic heart disease of native coronary artery without angina pectoris; I48.0 Paroxysmal atrial fibrillation; N40.0 Benign prostatic hyperplasia without lower urinary tract symptoms; R13.10 Dysphagia, unspecified; R47.02 Dysphasia; D63.1 Anemia in chronic kidney disease; K22.5 Diverticulum of esophagus, acquired; I71.03 Dissection of thoracoabdominal aorta; J98.11 Atelectasis; R19.7 Diarrhea, unspecified; F05 Delirium due to known physiological condition; T81.89XA Other complications of procedures, not elsewhere classified, initial encounter; R15.9 Full incontinence of feces; G47.00 Insomnia, unspecified; L22 Diaper dermatitis; R62.7 Adult failure to thrive; R91.1 Solitary pulmonary nodule; Z99.81 Dependence on supplemental oxygen; Z79.899 Other long term (current) drug therapy; Z79.4 Long term (current) use of insulin; Z87.440 Personal history of urinary (tract) infections; Z87.891 Personal history of nicotine dependence; Z86.73 Personal history of transient ischemic attack (TIA), and cerebral infarction without residual deficits; Z87.01 Personal history of pneumonia (recurrent); Z80.1 Family history of malignant neoplasm of trachea, bronchus and lung; Z82.49 Family history of ischemic heart disease and other diseases of the circulatory system; Z82.5 Family history of asthma and other chronic lower respiratory diseases
CPT/HCPCS: 36600; 71010; 71275; 74230; 80048; 80053; 80202; 82803; 83605; 84484; 85025; 85027; 85610; 85730; 87040; 87070; 87075; 87077; 87147; 87186; 87205; 87493; 92610 GN; 92611 GN; 93005; 94010; 94640; 94640 76; 94667; 94668; 94799; 97530 GO; 97530 GP; 99202; 99281; 99285; B4087; J1644; J2543; J2930; J3370; J7040; J7050; J7512

== ENCOUNTER 2017-01-08 23:18 | Emergency (ER) | payer OTHER ==
[~2017-01-08] VITALS: Ht 177.8 cm; Wt 70.5 kg
[~2017-01-08 23:18] MED LIST changes: +AMOX TR-K400 MG/5 M GT; +DUONEB 2.5-0.5 M3 ML AEROSOL; +FLORASTOR250 MG GT; +MAXALT MLT10 MG PO; +PREDNISONE10 MG PO; +TAMSULOSIN HCL0.4 MG GT; +TRAZODONE HCL50 MG GT
[2017-01-09 01:57] LABS: ADD MIUA? YES; BILIRUBIN NEGATIVE; BLOOD LARGE; COLOR YELLOW ((YELLOW)); GLUCOSE (STRIP) NEGATIVE; KETONES NEGATIVE; LEUKOCYTES NEGATIVE; NITRITE NEGATIVE; PROTEIN (STRIP) 30; UROBILINOGEN 0.2 MG/DL (0.2-1.0)
[2017-01-09 02:02] LABS: EOSINOPHIL (%) 0.2 % (0-5); HEMATOCRIT 33.4 % (38.0-50.0); IMMATURE GRANULOCYTE (%) 1.3 % (0.0-0.7); IMMATURE GRANULOCYTE COUNT 0.2 K/uL; INSTRUMENT ABS NEUTROPHIL CT 9.9 K/uL; LYMPHOCYTE COUNT 1.5 K/uL (1.0-2.8); MCH 29.9 PG (29.0-34.0); MCV 93.3 FL (86-99); MEAN PLAT.VOLUME 9.1 uM^3 (9.0-12.4); NEUTROPHIL (%) 78.4 % (45-76); NEUTROPHIL COUNT 9.9 K/uL (1.8-6.4); PLATELET COUNT 446 K/uL (156-360); RBC DIS.WIDTH-CV 15.9 % (11.8-14.6); RBC DIS.WIDTH-SD 54.1 % (39-53); RED BLOOD COUNT 3.58 M/uL (4.00-5.50); WHITE BLOOD COUNT 12.6 K/uL (4.1-10.2)
[2017-01-09 02:05] LABS: BACTERIA RARE /HPF; CALCIUM OXALATE CRYSTALS 3+ /HPF; EPITHELIAL CELLS RARE /HPF; HYALINE CASTS 0-5 /LPF; MUCUS TRACE /LPF; RED BLOOD CELLS TNTC /HPF (0-5); UCUL ADDED? NO; WHITE BLOOD CELLS 20-30 /HPF (0-5)
[2017-01-09] MEDS ORDERED: KEFLEX500 MG PO (02:10)
[2017-01-09 02:13] LABS: CHLORIDE 100 mEq/L (99-109); POTASSIUM 4.1 mEq/L (3.7-5.4)
[2017-01-09 02:14] LABS: GLUCOSE 74 mg/dL (70-99); SODIUM 134 mEq/L (136-147)
[2017-01-09 02:16] LABS: ANION GAP 7 MEQ/L (2-14)
[2017-01-09 02:18] LABS: GFR ESTIMATE (CALCULATED) > 59 mL/min/
[2017-01-09 02:19] LABS: UREA NITROGEN (BUN) 24 mg/dL (9-23)
[2017-01-09 02:45] VITALS: BP 145/89
== END 2017-01-09 02:46 | disposition home or self-care (01) ==
LOC: EME 23:18
PROVIDERS: Emergency Medicine
PROC: 0T9B70Z Drainage of Bladder with Drainage Device, Via Natural or Artificial Opening (ICD-10-PCS; principal; 2017-01-08)
DX: N39.0 Urinary tract infection, site not specified (principal); R31.9 Hematuria, unspecified; Z96.0 Presence of urogenital implants; J44.9 Chronic obstructive pulmonary disease, unspecified; J45.909 Unspecified asthma, uncomplicated; I10 Essential (primary) hypertension; E03.9 Hypothyroidism, unspecified; Z87.891 Personal history of nicotine dependence
CPT/HCPCS: 80048; 81003; 85025; 87086; 99281; 99284

== ENCOUNTER 2017-01-29 02:14 | Emergency (ER) | payer OTHER ==
[~2017-01-29] VITALS: Ht 177.8 cm; Wt 63.4 kg
[~2017-01-29 02:14] MED LIST changes: +KEFLEX500 MG PO
[2017-01-29 02:51] LABS: HEMATOCRIT 33.2 % (38.0-50.0); MCH 30.4 PG (29.0-34.0); MCHC 32.8 G/DL (30.0-36.0); MCV 92.7 FL (86-99); RBC DIS.WIDTH-CV 15.9 % (11.8-14.6); RED BLOOD COUNT 3.58 M/uL (4.00-5.50); WHITE BLOOD COUNT 6.3 K/uL (4.1-10.2)
[2017-01-29 02:59] LABS: CHLORIDE 100 mEq/L (99-109); SODIUM 133 mEq/L (136-147)
[2017-01-29 03:00] LABS: GLUCOSE 127 mg/dL (70-99)
[2017-01-29 03:02] LABS: ANION GAP 9 MEQ/L (2-14)
[2017-01-29 03:04] LABS: GFR ESTIMATE (CALCULATED) 45 mL/min/
[2017-01-29 03:05] LABS: UREA NITROGEN (BUN) 26 mg/dL (9-23)
[2017-01-29 03:10] LABS: INTER. NORMALIZED RATIO 1.1; PROTHROMBIN TIME 11.1 (9.2-11.2); PTT 28.5 (25-32)
[2017-01-29 03:13] LABS: TROP-I INTERPRETATION NEGATIVE; TROPONIN-I 0.02 ng/mL (0.0-0.30)
[2017-01-29 03:29] LABS: MEAN PLAT.VOLUME 8.8 uM^3 (9.0-12.4); PLAT.SUFFICIENCY ADEQUATE; PLATELET COUNT 266 K/uL (156-360)
[2017-01-29] MEDS ORDERED: LEVOFLOXACIN750 MG PO (04:08)
[2017-01-29 04:18] LABS: ADD MIUA? YES; BILIRUBIN NEGATIVE; BLOOD NEGATIVE; COLOR YELLOW ((YELLOW)); GLUCOSE (STRIP) NEGATIVE; KETONES NEGATIVE; LEUKOCYTES SMALL; NITRITE NEGATIVE; PROTEIN (STRIP) NEGATIVE; SPECIFIC GRAVITY 1.013 (1.000-1.030); UROBILINOGEN 0.2 MG/DL (0.2-1.0)
[2017-01-29 04:23] LABS: BACTERIA 1+ /HPF; EPITHELIAL CELLS RARE /HPF; HYALINE CASTS 40-50 /LPF; MUCUS 1+ /LPF; RED BLOOD CELLS 0-5 /HPF (0-5); UCUL ADDED? NO
[2017-01-29 05:30] VITALS: BP 130/73
== END 2017-01-29 05:32 | disposition home or self-care (01) ==
LOC: EME 02:14
PROVIDERS: Emergency Medicine
DX: I48.91 Unspecified atrial fibrillation (principal); J44.0 Chronic obstructive pulmonary disease with (acute) lower respiratory infection; J18.9 Pneumonia, unspecified organism; I10 Essential (primary) hypertension; Z87.891 Personal history of nicotine dependence
CPT/HCPCS: 71010; 80048; 81003; 83605; 84484; 85027; 85610; 85730; 87040; 93005; 99281; 99285; J1160; J2543; J3370; J7030

== ENCOUNTER 2017-02-09 22:46 | Inpatient (IN) | payer OTHER ==
[~2017-02-09] VITALS: Ht 182.9 cm; Wt 71.3 kg
[~2017-02-09 22:46] MED LIST changes: +LEVOFLOXACIN750 MG PO; -TAMSULOSIN HCL0.4 MG GT; -TRAZODONE HCL50 MG GT
[2017-02-09 23:31] LABS: ADD MIUA? YES; BILIRUBIN NEGATIVE; BLOOD NEGATIVE; COLOR YELLOW ((YELLOW)); GLUCOSE (STRIP) NEGATIVE; KETONES NEGATIVE; LEUKOCYTES LARGE; NITRITE POSITIVE; PROTEIN (STRIP) 30; UROBILINOGEN 0.2 MG/DL (0.2-1.0)
[2017-02-09 23:48] LABS: HEMATOCRIT 35.3 % (38.0-50.0); MCH 29.3 PG (29.0-34.0); MCV 91.5 FL (86-99); MEAN PLAT.VOLUME 9.3 uM^3 (9.0-12.4); PLATELET COUNT 332 K/uL (156-360); RBC DIS.WIDTH-CV 15.4 % (11.8-14.6); RBC DIS.WIDTH-SD 51.4 % (39-53); RED BLOOD COUNT 3.86 M/uL (4.00-5.50); WHITE BLOOD COUNT 10.6 K/uL (4.1-10.2)
[2017-02-09 23:53] LABS: INTER. NORMALIZED RATIO 1.1; PROTHROMBIN TIME 12.4 SEC (10.2-12.9)
[2017-02-09 23:56] LABS: BACTERIA 2+ /HPF; CASTS NONE SEEN /LPF; CRYSTALS NONE SEEN; EPITHELIAL CELLS 2+ /HPF; MUCUS 3+ /LPF; RED BLOOD CELLS 0-5 /HPF (0-5); UCUL ADDED? YES; WHITE BLOOD CELLS TNTC /HPF (0-5)
[2017-02-09 23:56] LABS: PTT 29.5 SEC (25-37)
[2017-02-10] VITALS (32 sets, daily range): BP systolic 91–168; BP diastolic 47–95
[2017-02-10 00:01] LABS: CHLORIDE 101 mEq/L (99-109); SODIUM 133 mEq/L (136-147)
[2017-02-10 00:02] LABS: GLUCOSE 170 mg/dL (70-99)
[2017-02-10 00:04] LABS: ANION GAP 7 MEQ/L (2-14)
[2017-02-10 00:06] LABS: GFR ESTIMATE (CALCULATED) > 59 mL/min/
[2017-02-10 00:07] LABS: UREA NITROGEN (BUN) 20 mg/dL (9-23)
[2017-02-10 00:09] LABS: TROP-I INTERPRETATION NEGATIVE; TROPONIN-I < 0.01 ng/mL (0.0-0.30)
[2017-02-10] MEDS ORDERED: TYLENOL REGULA325 MG PO (01:29)
[2017-02-10] MEDS ORDERED: DIGOX125 MCG PO (01:30)
[2017-02-10] MEDS ORDERED: ATORVASTATIN CA40 MG PO (01:31)
[2017-02-10 06:26] LABS: TROP-I INTERPRETATION NEGATIVE; TROPONIN-I 0.01 ng/mL (0.0-0.30)
[2017-02-10 06:52] LABS: HDL CHOLESTEROL 41 MG/DL (Desirable>=40); LDL CHOLESTEROL 62 mg/dL (Desirable<100); NON-HDL CHOLESTEROL 76 mg/dL (Desirable<160); TOTAL CHOLESTEROL 117 mg/dL (Desirable<200); TRIGLYCERIDES 71 MG/DL (Normal: <150)
[2017-02-10] MEDS ORDERED: PEPCID20 MG PO (11:16)
[2017-02-10] MEDS ORDERED: CEFDINIR300 MG PO (11:20)
[2017-02-10 12:21] LABS: TROP-I INTERPRETATION NEGATIVE; TROPONIN-I 0.01 ng/mL (0.0-0.30)
[2017-02-10 16:24] LABS: ANION GAP 8 MEQ/L (2-14); CHLORIDE 101 MEQ/L (99-109); GFR ESTIMATE (CALCULATED) > 59 mL/min/; MAGNESIUM 2.1 mg/dl (1.3-2.7); SODIUM 133 MEQ/L (136-147); UREA NITROGEN (BUN) 19 mg/dL (9-23)
[2017-02-10 16:36] LABS: GLUCOSE 86 mg/dL (70-99)
[2017-02-10 16:48] LABS: TROP-I INTERPRETATION NEGATIVE; TROPONIN-I 0.02 ng/mL (0.0-0.30)
[2017-02-10 17:01] LABS: METH RESISTANT S AUREUS PCR POSITIVE (NEGATIVE)
[2017-02-10 17:03] LABS: PROBE CHECK PASS
[2017-02-11] VITALS (8 sets, daily range): BP systolic 94–136; BP diastolic 49–76
[2017-02-11 07:13] LABS: MCH 30.9 PG (29.0-34.0); MCHC 33.5 G/DL (30.0-36.0); MCV 92.1 FL (86-99); MEAN PLAT.VOLUME 9.7 uM^3 (9.0-12.4); PLATELET COUNT 289 K/uL (156-360); RBC DIS.WIDTH-CV 15.7 % (11.8-14.6); RBC DIS.WIDTH-SD 53.1 % (39-53); RED BLOOD COUNT 3.69 M/uL (4.00-5.50); WHITE BLOOD COUNT 8.7 K/uL (4.1-10.2)
[2017-02-11 07:39] LABS: ANION GAP 9 MEQ/L (2-14); CHLORIDE 104 MEQ/L (99-109); GFR ESTIMATE (CALCULATED) > 59 mL/min/; GLUCOSE 105 mg/dL (70-99); POTASSIUM 4.1 MEQ/L (3.7-5.4); SAMPLE HEMOLYSIS CHECK 0; SAMPLE ICTERIC CHECK 0; SAMPLE LIPEMIA CHECK 0; SODIUM 135 MEQ/L (136-147); UREA NITROGEN (BUN) 18 mg/dL (9-23)
[2017-02-11 08:05] LABS: DIGOXIN 0.9 ng/mL (0.8-2.0)
[2017-02-12 00:10] VITALS: BP 122/58
[2017-02-12 05:03] VITALS: BP 124/62
[2017-02-12 07:59] VITALS: BP 102/59
[2017-02-12 12:21] VITALS: BP 96/55
[2017-02-12 16:13] VITALS: BP 109/55
[2017-02-12 21:13] VITALS: BP 135/62
[2017-02-13 00:44] VITALS: BP 112/59
[2017-02-13 04:30] VITALS: BP 107/62
[2017-02-13 07:35] VITALS: BP 122/62
[2017-02-13 12:47] VITALS: BP 110/52
[2017-02-13 15:41] VITALS: BP 109/60
[2017-02-13 19:10] VITALS: BP 142/78
[2017-02-14 00:40] VITALS: BP 110/59
[2017-02-14 04:33] VITALS: BP 122/80
[2017-02-14 07:30] VITALS: BP 106/75
[2017-02-14 12:15] VITALS: BP 123/63
[2017-02-14] MEDS ORDERED: HIPREX1 GM PO (13:28)
[2017-02-14] MEDS ORDERED: CARDIZEM60 MG PO (13:28)
[2017-02-14] MEDS ORDERED: DIGOXIN250 MCG PO (13:28)
[2017-02-14] MEDS ORDERED: SYNTHROID75 MCG PO (13:28)
[2017-02-14] MEDS ORDERED: CIPRO250 MG PO (13:28)
[2017-02-14 15:30] VITALS: BP 132/72
== END 2017-02-14 17:22 | disposition home or self-care (01) | DRG 308 ==
LOC: EME → EDBD 22:46 → EDOF 02-10 01:29 → 4EAST 02-10 08:34 → 5WEST 02-10 08:35 → 4EAST 02-10 14:08 → 5WEST 02-10 14:08 → 4EAST 02-10 14:08
PROVIDERS: Emergency Medicine; Hospitalist; Physician Assistant Medical
DX: I48.0 Paroxysmal atrial fibrillation (principal); I77.76 Dissection of artery of upper extremity; J90 Pleural effusion, not elsewhere classified; I71.01 Dissection of thoracic aorta; I71.03 Dissection of thoracoabdominal aorta; N39.0 Urinary tract infection, site not specified; E11.22 Type 2 diabetes mellitus with diabetic chronic kidney disease; N13.8 Other obstructive and reflux uropathy; E87.1 Hypo-osmolality and hyponatremia; J44.9 Chronic obstructive pulmonary disease, unspecified; K21.9 Gastro-esophageal reflux disease without esophagitis; N31.2 Flaccid neuropathic bladder, not elsewhere classified; N18.2 Chronic kidney disease, stage 2 (mild); R33.8 Other retention of urine; K22.5 Diverticulum of esophagus, acquired; R62.7 Adult failure to thrive; R09.02 Hypoxemia; E78.5 Hyperlipidemia, unspecified; I12.9 Hypertensive chronic kidney disease with stage 1 through stage 4 chronic kidney disease, or unspecified chronic kidney disease; F32.9 Major depressive disorder, single episode, unspecified; E03.9 Hypothyroidism, unspecified; F41.9 Anxiety disorder, unspecified; I69.354 Hemiplegia and hemiparesis following cerebral infarction affecting left non-dominant side; H91.93 Unspecified hearing loss, bilateral; N40.1 Benign prostatic hyperplasia with lower urinary tract symptoms; B96.5 Pseudomonas (aeruginosa) (mallei) (pseudomallei) as the cause of diseases classified elsewhere; Z79.4 Long term (current) use of insulin; Z72.0 Tobacco use; Z68.1 Body mass index [BMI] 19.9 or less, adult; Z87.440 Personal history of urinary (tract) infections; I25.2 Old myocardial infarction; Z93.1 Gastrostomy status; Z80.1 Family history of malignant neoplasm of trachea, bronchus and lung; Z82.49 Family history of ischemic heart disease and other diseases of the circulatory system; Z82.5 Family history of asthma and other chronic lower respiratory diseases
CPT/HCPCS: 71010; 71275; 80048; 80048 91; 80061; 80162; 81003; 83735; 83880; 84100; 84443; 84484; 85027; 85610; 85730; 87077; 87086; 87186; 87641; 93005; 94640; 94640 76; 94799; 97530 GP; 99202; 99281; 99285; J0692; J0696; J1644; J7050